=== PATIENT | male | born 1935 | race Hispanic/Latino ===

== ENCOUNTER 2022-05-05 09:04 | Emergency (ER) | payer MEDICARE, OTHER ==
[~2022-05-05] VITALS: Ht 167.6 cm; Wt 74.8 kg
[2022-05-05 10:01] LABS: BASOPHILS % (AUTO) 0.7 % (0.0-5.0); HEMATOCRIT 38.7 % (42-54); LYMPHOCYTES % (AUTO) 23.2 % (21.0-51.0); MEAN CORPUSCULAR HEMOGLOBIN 33.4 pg (27.0-33.0); MEAN CORPUSCULAR HGB CONC 34.4 g/dL (32.0-36.0); MEAN CORPUSCULAR VOLUME 97.2 fL (79-99); MONOCYTES % (AUTO) 9.1 % (3.0-13.0); NEUTROPHILS % (AUTO) 60.4 % (40.0-77.0); PLATELET COUNT (AUTO) 156 K/uL (130-400); RED BLOOD CELL COUNT(AUTO) 3.98 MIL/uL (4.50-6.20); WHITE BLOOD COUNT (AUTO) 6.9 K/uL (4.8-10.8)
[2022-05-05 10:25] LABS: ALBUMIN 3.2 g/dL (3.5-5.0); B-TYPE NATRIURETIC PEPTIDE 99 pg/mL (0-100); CREATININE 0.9 mg/dL (0.5-1.5); POTASSIUM 3.4 mmol/L (3.5-5.1); TOTAL PROTEIN, SERUM 6.7 g/dL (6.0-8.3)
[2022-05-05 10:37] LABS: APPEARANCE,URINE CLEAR (CLEAR); BILIRUBIN,URINE NEGATIVE (NEGATIVE); COLOR,URINE YELLOW (YELLOW); GLUCOSE, URINE (UA) NEGATIVE (NEGATIVE); KETONES,URINE NEGATIVE (NEGATIVE); LEUKOCYTE ESTERASE ,URINE NEGATIVE (NEGATIVE); NITRATE,URINE NEGATIVE (NEGATIVE); OCCULT BLOOD,URINE NEGATIVE (NEGATIVE); PROTEIN,URINE NEGATIVE (NEGATIVE); UROBILINOGEN,URINE 0.2 mg/dL (0.2-1.0)
[2022-05-05 10:44] LABS: BACTERIA,URINE Rare /HPF (None Seen); RBC,URINE None Seen /HPF (0-1); WBC,URINE 0-1 /HPF (0-1)
[2022-05-05 10:45] LABS: SQUAMOUS EPITHELIAL CELL,UR None Seen /HPF (0-2)
[2022-05-05 11:28] VITALS: BP 153/73
== END 2022-05-05 11:36 | disposition home or self-care (01) ==
LOC: EDH 09:12
DX: R03.0 Elevated blood-pressure reading, without diagnosis of hypertension (principal); E78.00 Pure hypercholesterolemia, unspecified; Z90.5 Acquired absence of kidney
CPT/HCPCS: 36415; 70450; 80053; 81001; 83880; 84484; 85025; 93005